=== PATIENT | female | born 1940 | race Caucasian/White ===

== ENCOUNTER 2017-08-04 06:42 | Day surgery (SDC) | payer OTHER ==
[~2017-08-04] VITALS: Ht 162.6 cm; Wt 92.0 kg
[~2017-08-04 06:42] MED LIST: APIX5TAB PO; CEFD300C37 PO; DABI150C PO; DIAZ5TAB PO; DOXY100T PO; FURO40TA6 PO; GABA600T2 PO; IPRA3AMP NPPB; MAGN400T26 PO; METO25TA35 PO; MULT-658 PO; ONDA4TAB7 PO; OXYC5TAB2 PO; POTA10TA11 PO; SOTA80TA PO; TEMA15CA6 PO; lovenox SC
[2017-08-04] MEDS ORDERED: IPRA4AER INH (06:52)
[2017-08-04] MEDS ORDERED: POTA10TA PO (06:57)
[2017-08-04] MEDS ORDERED: TIOT18CA INH (06:57)
[2017-08-04] MEDS ORDERED: METO25TA35 PO (06:57)
[2017-08-04] MEDS ORDERED: MAGN400T36 PO (06:57)
[2017-08-04] MEDS ORDERED: TEMA30CA PO (06:57)
[2017-08-04 07:33] VITALS: BP 133/78
[2017-08-04 08:04] LABS: BASOPHILS # (AUTO) 0.01 x10^3/uL (0-0.1); BASOPHILS % (AUTO) 0 % (0-1); EOSINOPHILS % (AUTO) 2 % (1-7); LYMPHOCYTES # (AUTO) 1.06 x10^3/uL (1-3.4); LYMPHOCYTES % (AUTO) 23 % (22-44); MD NO; MEAN CORPUSCULAR HEMOGLOBIN 33.6 pg (27.0-34.8); MEAN CORPUSCULAR HGB CONC 34.3 g/dL (32.4-35.8); MEAN CORPUSCULAR VOLUME 97.9 fL (80-100); MEAN PLATELET VOLUME 8.2 fL (7.4-10.4); MONOCYTES # (AUTO) 0.53 x10^3/uL (0.2-0.8); MONOCYTES % (AUTO) 12 % (2-9); NEUTROPHILS # (AUTO) 2.88 x10^3/uL (1.8-6.8); NEUTROPHILS % (AUTO) 63 % (42-75); PLATELET COUNT 146 x10^3/uL (130-400); RED BLOOD COUNT 3.89 x10^6/uL (3.82-5.3)
[2017-08-04] MEDS ORDERED: PROPOFOL 10 MG/ML, 20ML ONE (08:04)
[2017-08-04 08:17] LABS: ALANINE AMINOTRANSFERASE 27 U/L (12-78); ALBUMIN 3.6 g/dL (3.4-5.0); ANION GAP 3 mmol/L (5-15); CALCIUM 9.1 mg/dL (8.5-10.1); CHLORIDE 115 mmol/L (98-107)
[2017-08-04 08:19] LABS: ALKALINE PHOSPHATASE 87 U/L (45-117); BILIRUBIN,TOTAL 0.6 mg/dL (0.2-1.0); TOTAL PROTEIN 6.7 g/dL (6.4-8.2)
[2017-08-04] MEDS ORDERED: SODIUM CHLORIDE FLUSH 10ML SYR IVF SCH (09:00)
== END 2017-08-04 09:25 ==
LOC: CACL 06:42
PROVIDERS: ATTEND Internal Medicine Cardiovascular Disease
DX: I48.0 Paroxysmal atrial fibrillation (principal); I10 Essential (primary) hypertension; Z91.09 Other allergy status, other than to drugs and biological substances
CPT/HCPCS: 36415; 80053; 85025; 92960; J2704